=== PATIENT | female | born 1935 | race Caucasian/White ===

== ENCOUNTER 2022-03-07 10:04 | Emergency (ER) | payer OTHER ==
[~2022-03-07] VITALS: Ht 162.6 cm; Wt 71.7 kg
[2022-03-07 10:23] VITALS: BP 136/90
--- NOTE | 2022-03-07 10:25 | NUR ---
PT CAME IN TO ER C/O RIGHT SHOULDER PAIN RADIATING TO BACK OF NECK S/P SLIP AND FALL X 1 WEEK. PAIN SCALE 4/10. PT STATES, SHE TRIED TO GET OUT OF BED, LOST HER BALANCE, AND FELL. NO DEFORMITY NOTED, LIMITED RANGE OF MOTION, CMS INTACT. VS WNL, PT AMBULATED TO BED USING A CANE. PLACED IN BED AND MONITOR, AWAITING MD ORDERS.
[2022-03-07] MEDS: KETOROLAC TROMETHAMINE INJ 60 MG/2 ML VIAL IM ONE (10:40)
[2022-03-07] MEDS ORDERED: KETOROLAC TROMETHAMINE 15 MG/ML VIAL ONE (10:41)
[2022-03-07] MEDS ORDERED: LIDO30AD10 TP (11:16)
[2022-03-07] MEDS ORDERED: NAPR-1164 PO (11:16)
== END 2022-03-07 11:20 | disposition home or self-care (01) ==
LOC: ER 10:08
DX: S49.91XA Unspecified injury of right shoulder and upper arm, initial encounter (principal); E78.00 Pure hypercholesterolemia, unspecified; Z88.0 Allergy status to penicillin; Z88.1 Allergy status to other antibiotic agents; Z79.899 Other long term (current) drug therapy; W06.XXXA Fall from bed, initial encounter; Y93.89 Activity, other specified; Y92.89 Other specified places as the place of occurrence of the external cause; Y99.8 Other external cause status
CPT/HCPCS: 99283; 96372; 73030; J1885